=== PATIENT | female | born 1970 | race Caucasian/White ===

== ENCOUNTER → 2017-06-21 | Outpatient (CLI) | payer OTHER ==
[~2017-06-21] MED LIST: ADVAIR 2501 DISK W/D PO; ALBUTEROL17 GM INH; ANTIBIOTIC; AZULFIDINE500 M1 PO; PREDNISONE10 MG/DOSE PO
--- NOTE | ~2017-06-21 | MY29 ---
[facility] A Service of [facility] RADIOLOGY TEXT RESULTS PATIENT: AVTAR AGEE LOCATION: [facility] : [birth year] UNIT #: [id number] AGE: [address]: Kaya Bhandari MD SEX: F ORDER DR: [id number] [facility] [address] [place], [place] [address] [id number] O MR#: [id number] Acc #: [id number] NAME: AVTAR AGEE : 1970 SEX: F STUDY DATE/TIME: 06/21/2017 10:44 UNIT: [facility] ROOM: STUDY DESCRIPTION: MY WALLY SCREENING W/ CAD BILAT Attending Physician: Kaya Bhandari M.D. Referring Physician: Kaya Bhandari M.D. Ordering Physician: Kaya Bhandari M.D. Primary Care Physician: Kaya Bhandari M.D. MEDICAL IMAGING REPORT This report is preliminary unless electronic signature is present EXAM Digital screening mammogram, 06/21/2017 HISTORY 46-year-old woman no risk elevation. Annual screening. COMPARISON 04/22/2014 FINDINGS Digital imaging of each breast was completed utilizing a two-view examination of each breast in craniocaudal and mediolateral-oblique projections. Review and interpretation of digital mammograms include a second review in conjunction with FDA-approved CAD device. There is a normal parenchymal presentation bilaterally consistent with the patient's age. There are no breast masses imaged and no parenchymal asymmetry is visualized. There are no suspicious microcalcifications and I see no focal architectural disturbance. IMPRESSION Negative screening digital mammogram. One-year followup recommended. Patients over the age of 40 are entered into a reminder system with target due date for the next mammogram. A result letter will also be sent to the patient. BIRADS: 1 Negative Dictated by... Agapito Ho M.D. THIS IS AN ELECTRONICALLY VERIFIED REPORT [facility] A Service [facility] RADIOLOGY TEXT RESULTS PATIENT: AVTAR AGEE LOCATION: [facility] : [birth year] UNIT #: [id number] AGE: [address]: Kaya Bhandari MD SEX: F ORDER DR: Agapito Ho M.D. at 06/22/2017 8:07 AM TIMBO/maki TD: 06/21/2017 11:33 JOB #: [id number] MEDICAL IMAGING REPORT Page 1 of 1 COPY
== END | disposition home or self-care (01) ==
LOC: CWCC 10:15
DX: Z12.31 Encounter for screening mammogram for malignant neoplasm of breast (principal)
CPT/HCPCS: G0202